=== PATIENT | female | born 1975 | race African-American/Black ===

== ENCOUNTER 2019-08-25 10:29 | Inpatient (IN) | payer SELFPAY ==
--- NOTE | 2019-08-25 14:35 | ULT ---
VENOUS DOPPLER ULTRASOUND OF THE RIGHT LOWER EXTREMITY: Date: 08/25/19 HISTORY: Right lower extremity pain. TECHNIQUE: Benson scale ultrasound with color flow and spectral Doppler imaging of the deep venous system of the r ight lower extremity was performed. FINDINGS: There is good flow, compression, and augmentation noted in the right common femoral, femoral, deep fe moral, popliteal, posterior tibial, and greater saphenous veins. IMPRESSION: No evidence of deep venous thrombosis in the right lower extremity. POS: TPC
[2019-08-25 14:40] LABS: #Eosinphils 0.1 thou/uL (0.0-0.7); #Lymphocytes 2.5 thou/uL (1.20-3.40); #Monocytes 0.6 thou/uL (0.11-0.59); #Neutrophils 3.3 thou/uL (1.40-6.50); %Basophils 0.7 % (0.0-1.0); %Eosinophils 1.1 % (0.0-10.0); %Lymphocytes 38.6 % (21.0-51.0); %Monocytes 8.9 % (0.0-10.0); %Neutrophils 50.8 % (42.0-75.0); Hemoglobin 10.5 g/dL (12.0-16.0); Mean Corpuscular Volume 74.2 fL (78.0-98.0); Mean Platelet Volume 9.5 fL (7.4-10.4); Platelet Count 341 thou/uL (130-400); RBC Distribution Width 17.4 % (11.5-14.5); Red Blood Cell (RBC) Count 4.58 mill/uL (4.20-5.40); White Blood Cell (WBC) Count 6.5 thou/uL (4.8-10.8)
[2019-08-25 15:01] LABS: Hypochromia SLIGHT = 6-15 cells (100X) (0-5/hpf); MDiff Complete? YES; Microcytosis SLIGHT = 6-15 cells (100X) (0-5/hpf); Ovalocytes SLIGHT = 2-5 cells (100X) (0-1/hpf); Platelet Morphology Comment Appears Adequate; Polychromasia SLIGHT = 2-3 cells (100X) (0-2/hpf); Target Cells SLIGHT = 2-5 cells (100X) (0-1/hpf); Tear Drops SLIGHT = 2-5 cells (100X) (0-1/hpf)
[2019-08-25 15:02] LABS: ALT (SGPT) 18 U/L (8-55); AST (SGOT) 59 U/L (5-34); Albumin 4.1 g/dL (3.5-5.0); Alkaline Phosphatase 59 U/L (40-110); Anion Gap 11 mmol/L (10-20); BUN (Urea Nitrogen) 9 mg/dL (7.0-18.7); Bilirubin, Total 0.3 mg/dL (0.2-1.2); Calc. Creatinine Clearance 0 mL/min (70-130); Calcium 9.1 mg/dL (7.8-10.44); Carbon Dioxide 23 mmol/L (22-29); Chloride 108 mmol/L (98-107); Estimated GFR-MDRD Greater than 90; Globulin 2.9 g/dL (2.4-3.5); Glucose 100 mg/dL (70-105); Potassium 4.4 mmol/L (3.5-5.1); Sodium 138 mmol/L (136-145)
[2019-08-25 15:29] LABS: CK (CPK) 9582 U/L (29-168)
[2019-08-25 16:34] LABS: Bilirubin Negative (Negative); Blood, Urine Trace (Negative); Clarity Turbid (Clear); Glucose, Urine (Dipstick) Normal (Negative); Leukocyte 250 Leu/uL (Negative); Nitrite Negative (Negative); Protein, Urine (Dipstick) Negative (Neg-Trace); RBC/HPF 0-3 HPF (0-3); Squamous Epithelial 21-50 HPF (0-3); Urobilinogen Normal mg/dL (Less than 2)
[2019-08-25 16:42] LABS: Bacteria/HPF 1+ HPF (None Seen)
[2019-08-25] MEDS ORDERED: Ondansetron PF 4 MG/2 ML Vial IVP PRN (18:29)
[2019-08-25] MEDS ORDERED: Ondansetron ODT 4 MG TAB PO PRN (18:29)
[2019-08-25] MEDS ORDERED: Acetaminophen 650 MG Suppository PR PRN (18:29)
--- NOTE | 2019-08-25 19:23 | HP ---
TIME OF ASSESSMENT: 1700 hours. CHIEF COMPLAINT: Right lower extremity pain and swelling. PRIMARY CARE PHYSICIAN: None. HISTORY OF PRESENT ILLNESS: Ms. Del Rosario is a 44-year-old woman with no comorbidities, who presents due to persistent swelling and pain involving the right calf. The patient states she had been experiencing occasional muscle cramps in her legs on Friday. On Friday, while she was sleeping, she recalls turning in bed and having a sudden severe cramp in the right calf, which she states became very firm and tight. She states that eventually she was able to rub the muscle out, but noticed a bulge in the calf that remained. The following day, her right calf remains swollen and very tender. She has had difficulty walking and difficulty bearing weight on her heel due to the pain. She states the pain is worse with plantar flexion and extension. She denies any numbness or tingling in her foot. Did not experience any trauma and did not partake in any strenuous activity prior to Friday. She has had occasional muscle cramping in the left thigh that has not caused any residual pain or swelling. She has overall felt well in herself in recent days and denies any complaints. REVIEW OF SYSTEMS: She denies any recent fevers, chills, or sweats. No headaches or dizziness. While sitting in the emergency department, she did start to feel lightheaded, but that has resolved. Denies any nausea or vomiting. No abdominal pain or cramping. Her appetite has been good. Denies any urinary symptoms. No bowel changes. All other review of systems are negative. PAST MEDICAL HISTORY: 1. Obesity. 2. Tobacco use. PAST SURGICAL HISTORY: x3. SOCIAL HISTORY: The patient reports smoking cigarettes up until two weeks ago. Denies any heavy alcohol use or illicit drug use. ALLERGIES: NO KNOWN DRUG ALLERGIES. CURRENT MEDICATIONS: None. PHYSICAL EXAMINATION: GENERAL: The patient appears well developed, well nourished, is in no acute distress. VITAL SIGNS: Temperature 98, pulse blood pressure 155/100, respirations 18, and O2 saturation 100% on room air. HEENT: Normocephalic and atraumatic. Pupils are equal, round, and reactive to light. Sclerae without icterus. Oropharynx is clear. NECK: Supple. No lymphadenopathy. LUNGS: Clear to auscultation bilaterally without wheezes, rales, or rhonchi. CARDIAC: Regular rate and rhythm without audible murmurs, rubs, or gallops. ABDOMEN: Soft, nontender, nondistended. Normoactive bowel sounds present. EXTREMITIES: Right lower leg notable for tense swelling without any warmth or erythema. No wounds. Tender to light palpation. Pedal pulses equal bilaterally and strong. Sensation intact. NEUROLOGIC: Alert and oriented x3. No neuro deficits. SKIN: Warm and dry. EMERGENCY DEPARTMENT COURSE: In the emergency department, the patient underwent laboratory studies which showed white count of 6.5, hemoglobin 10.5, hematocrit 34, platelets 341, neutrophils 50.8%. Sodium 138, potassium 4.4, chloride 108, carbon dioxide 23, anion gap 11, BUN 9, creatinine 0.75, GFR greater than 90. Total bilirubin 0.3, albumin 4.1, calcium 9.1, alkaline phosphatase 59, AST 59, ALT 18. Urinalysis done showed turbid appearance with 250 leukocytes, trace blood, 7 to 10 white blood cells, 21 to 50 squamous epithelial cells, and 1+ bacteria. She had a CK that was elevated at 9582. Venous Doppler was done of the right lower extremity showing no evidence of DVT. The patient was treated with 2 L of normal saline. IMPRESSION AND PLAN: Ms. Del Rosario is a very pleasant 44-year-old woman, who presents with right lower extremity pain and swelling since Friday. She is being admitted for management of the following. 1. Rhabdomyolysis. The patient has a CK of 9582. She has received 2 L of IV fluids in the emergency department. We will continue with IV hydration. Dr. Guzmán has assessed her leg given some concern for compartment syndrome. There is no trauma. No neurovascular compromise. The patient is very tender to light palpation and has tense swelling. May have slightly improved since Friday. We will obtain a CT of the lower extremity. We will continue with IV fluids. 2. Elevated blood pressure at 155/100. The patient without any known history of hypertension. She does not take any medications at home. This may be due to her pain. We will manage her pain and see if this improves her blood pressure. 3. Gastrointestinal prophylaxis with famotidine. 4. Deep venous thrombosis prophylaxis. Unable to use mechanical SCDs given the amount of swelling in the right lower extremity. The patient is able to ambulate despite the discomfort. Walking program consult placed. 5. Code status, full. Surrogate decision maker is her Hossein Morrissey. The patient's case was discussed with Dr. Guzmán, who agrees upon care as described above. Job ID: [id number]
[2019-08-25 20:17] VITALS: BMI 48.0
[2019-08-25] MEDS: Sodium Chloride 0.9% 1,000 ML IV SCH (20:24)
[2019-08-25] MEDS: Famotidine/PF 20 mg/2ml Vial SLOW IVP SCH (20:25)
[2019-08-25] MEDS ORDERED: HYDROcodone/Acetaminophen 5/325 mg Tablet PO PRN ×2 (20:35)
[2019-08-25] MEDS: hydrALAZINE 20 MG/ML VIAL SLOW IVP PRN (21:09)
[2019-08-26] MEDS: Sodium Chloride 0.9% 1,000 ML IV SCH ×5 (04:29→20:41)
[2019-08-26 06:21] LABS: #Basophils 0.1 thou/uL (0.0-0.2); #Eosinphils 0.1 thou/uL (0.0-0.7); #Monocytes 0.5 thou/uL (0.11-0.59); #Neutrophils 2.3 thou/uL (1.40-6.50); %Eosinophils 1.6 % (0.0-10.0); %Lymphocytes 49.7 % (21.0-51.0); %Monocytes 8.7 % (0.0-10.0); Hemoglobin 9.2 g/dL (12.0-16.0); Mean Corpuscular HGB CONC 31.2 g/dL (32.0-36.0); Mean Corpuscular Hemoglobin 23.2 pg (27.0-31.0); Mean Corpuscular Volume 74.4 fL (78.0-98.0); Mean Platelet Volume 10.3 fL (7.4-10.4); Platelet Count 297 thou/uL (130-400); RBC Distribution Width 17.2 % (11.5-14.5); Red Blood Cell (RBC) Count 3.95 mill/uL (4.20-5.40)
[2019-08-26 07:03] LABS: Calcium 7.9 mg/dL (7.8-10.44); Chloride 111 mmol/L (98-107); Potassium 3.9 mmol/L (3.5-5.1); Sodium 136 mmol/L (136-145)
[2019-08-26 07:05] LABS: Glucose 93 mg/dL (70-105)
[2019-08-26 07:06] LABS: Carbon Dioxide 21 mmol/L (22-29)
[2019-08-26 07:08] LABS: Calc. Creatinine Clearance 210 mL/min (70-130); Estimated GFR-MDRD Greater than 90
[2019-08-26 07:09] LABS: BUN (Urea Nitrogen) 7 mg/dL (7.0-18.7)
[2019-08-26 07:10] LABS: Anion Gap 8 mmol/L (10-20)
[2019-08-26 07:37] LABS: CK (CPK) 10169 U/L (29-168)
[2019-08-26] MEDS: Acetaminophen 325 MG TAB PO PRN (08:06)
[2019-08-26] MEDS: Famotidine/PF 20 mg/2ml Vial SLOW IVP SCH ×2 (08:06→20:40)
[2019-08-26] MEDS ORDERED: FLU VACC QS2019-20(6MOS UP)/PF 60 MCG/0.5 ML SYRINGE IM ONE (09:00)
--- NOTE | 2019-08-26 09:58 | MRI ---
MR the right foreleg without IV contrast INDICATION: Right leg pain without a known history of injury COMPARISON: None TECHNIQUE: Multiple multisequence MR images were obtained of the right foreleg without IV contrast. S urface per Marker was placed over the region of pain along the posterior medial aspect of the mid right foreleg. FINDINGS: There is diffuse edema seen within the musculature of the medial gastrocnemius without evid ence of a large intramuscular hematoma. There is mild surrounding edema seen as involving the superficial fascia overlying the gastrocnemius. There is mild subcutaneous edema within the mid to lo wer right foreleg. No additional abnormal muscular signal intensity is evident. No bone marrow signal abnormality is noted. There is mild osteoarthritic change involving visualized aspects of the right knee. IMPRESSION: 1. Grade 1 muscular strain of the medial gastrocnemius 2. Mild lymphedema of the mid to lower right foreleg
[2019-08-26] MEDS: hydrALAZINE 20 MG/ML VIAL SLOW IVP PRN (20:40)
[2019-08-26 22:23] LABS: Magnesium 1.6 mg/dL (1.6-2.6)
[2019-08-27] MEDS: Sodium Chloride 0.9% 1,000 ML IV SCH ×6 (02:33→20:29)
[2019-08-27 06:25] LABS: Reticulocyte Count 1.3 % (0.5-1.5)
--- NOTE | 2019-08-27 06:40 | PDOC.HOSPP ---
- Subjective Encounter Date: 08/26/19 Encounter Time: 10:30 Subjective: pt up in bed complains of pain to her right calf area - Objective Vital Signs & Weight: Vital Signs (12 hours) Temp Pulse Resp BP Pulse Ox 08/27/19 05:09 98.0 F 93 18 158/92 H 99 08/27/19 00:00 98.3 F 114 H 18 171/71 H 100 08/26/19 20:40 96 08/26/19 20:00 98.4 F 96 16 181/104 H 100 Weight Weight 280 lb Result Diagrams: 08/26/19 05:37 08/26/19 05:37 Hospitalist ROS - Review of Systems Respiratory: denies: cough, dry, shortness of breath, hemoptysis, SOB with excertion, pleuritic pain, sputum, wheezing, other Cardiovascular: denies: chest pain, palpitations, orthopnea, paroxysmal noc. dyspnea, edema, light headedness, other Musculoskeletal: reports: leg pain - Medication Medications: Active Medications Generic Name Dose Route Start Last Admin Trade Name Freq PRN Reason Stop Dose Admin Acetaminophen 650 mg 08/25/19 18:29 08/26/19 08:06 Tylenol PO 650 mg Q4H PRN Administration Headache/Fever/Mild Pain (1-3) Hydrocodone Bitart/Acetaminophen 2 tab 08/25/19 20:35 08/25/19 21:04 [place] 5/325 PO 2 tab Q4H PRN Administration Moderate Pain (4-6) Famotidine 20 mg 08/25/19 21:00 08/26/19 20:40 Pepcid SLOW IVP 20 mg Q12HR CANDE Administration Hydralazine HCl 5 mg 08/25/19 20:36 08/26/19 20:40 Apresoline SLOW IVP 5 mg Q4H PRN Administration SBP Greater Than 180 Sodium Chloride 1,000 mls @ 250 mls/hr 08/26/19 09:22 08/27/19 06:23 Normal Saline 0.9% IV Not Given .Q4H CANDE - Exam Neck: negative: supple, symmetric, no JVD, no thyromegaly, no lymphadenopathy, no carotid bruit, JVD Heart: negative: RRR, no murmur, no gallops, no rubs, normal peripheral pulses, irregular, diminshed peripheral pulses, murmur present, II/IV, III/IV Respiratory: negative: CTAB, no wheezes, no rales, no ronchi, normal chest expansion, no tachypnea, normal percussion, rales, rhonchi, tachypneic, wheezes Skin - other findings: swelling noted to right calf area, pedal pulse present Hosp A/P (1) Rhabdomyolysis Code(s): M62.82 - RHABDOMYOLYSIS Status: Acute (2) Hypertension Code(s): I10 - ESSENTIAL (PRIMARY) HYPERTENSION Status: Acute - Plan [Pt's mri indicated muscle strain. No clear etiology of her rhabdo. will increase her fluids and recheck her ck. ? myositis. will check aletha, aldolase, esr and crp. she denies any trauma.
[2019-08-27 06:54] LABS: Anion Gap 10 mmol/L (10-20); BUN (Urea Nitrogen) 9 mg/dL (7.0-18.7); Calc. Creatinine Clearance 204 mL/min (70-130); Carbon Dioxide 22 mmol/L (22-29); Chloride 111 mmol/L (98-107); Estimated GFR-MDRD Greater than 90; Glucose 101 mg/dL (70-105); Iron 17 ug/dL (50-170); Sodium 139 mmol/L (136-145)
[2019-08-27 07:20] LABS: CK (CPK) 9349 U/L (29-168)
[2019-08-27] MEDS ORDERED: Amlodipine 5 MG TAB PO SCH (09:00)
[2019-08-27] MEDS: Famotidine/PF 20 mg/2ml Vial SLOW IVP SCH ×2 (09:10→20:30)
[2019-08-27] MEDS: Acetaminophen 325 MG TAB PO PRN ×2 (09:18→20:28)
[2019-08-27] MEDS ORDERED: Iron Sucrose Complex 200 MG in Sodium Chloride 0.9% 250 ML 250 ML IVPB SCH (12:00)
[2019-08-27 15:46] LABS: ANA Symphony (Qualitative) Negative (Negative); ANA Symphony (Quantitative) 0.2 Ratio (< 0.7 Negative); dsDNA IgG Antibody Less than 0.5 IU/mL (<10 Negative)
[2019-08-28] MEDS: Sodium Chloride 0.9% 1,000 ML IV SCH ×7 (00:29→20:15)
[2019-08-28] MEDS: Amlodipine 5 MG TAB PO SCH (07:57)
[2019-08-28] MEDS: Famotidine/PF 20 mg/2ml Vial SLOW IVP SCH ×2 (08:00→20:14)
[2019-08-28] MEDS ORDERED: Iron, Sodium Ferric Gluconate 250 MG in Sodium Chloride 0.9% 250 ML 250 ML IVPB SCH (08:00)
[2019-08-28] MEDS: Acetaminophen 325 MG TAB PO PRN ×2 (08:38→20:24)
[2019-08-28 09:51] LABS: Anion Gap 13 mmol/L (10-20); BUN (Urea Nitrogen) 6 mg/dL (7.0-18.7); Calc. Creatinine Clearance 220 mL/min (70-130); Carbon Dioxide 19 mmol/L (22-29); Chloride 110 mmol/L (98-107); Estimated GFR-MDRD Greater than 90; Glucose 89 mg/dL (70-105); Sodium 138 mmol/L (136-145)
[2019-08-28 10:17] LABS: CK (CPK) 8090 U/L (29-168)
--- NOTE | 2019-08-28 13:17 | PDOC.HOSPP ---
- Subjective Encounter Date: 08/28/19 Encounter Time: 10:30 Subjective: pt up in bed feels well - Objective Vital Signs & Weight: Vital Signs (12 hours) Temp Pulse Resp BP BP Pulse Ox 08/28/19 11:45 98.8 F 95 16 144/79 H 96 08/28/19 08:00 172/86 H 95 08/28/19 07:57 98.1 F 84 16 95 Weight Weight 280 lb I&O: 08/27/19 08/28/19 08/29/19 06:59 06:59 06:59 Intake Total 4094 Balance 4094 Result Diagrams: 08/26/19 05:37 08/28/19 08:42 Hospitalist ROS - Review of Systems Respiratory: denies: cough, dry, shortness of breath, hemoptysis, SOB with excertion, pleuritic pain, sputum, wheezing, other Cardiovascular: denies: chest pain, palpitations, orthopnea, paroxysmal noc. dyspnea, edema, light headedness, other Gastrointestinal: denies: nausea, vomiting, abdominal pain, diarrhea, constipation, melena, hematochezia, other - Medication Medications: Active Medications Generic Name Dose Route Start Last Admin Trade Name Freq PRN Reason Stop Dose Admin Acetaminophen 650 mg 08/25/19 18:29 08/28/19 08:38 Tylenol PO 650 mg Q4H PRN Administration Headache/Fever/Mild Pain (1-3) Hydrocodone Bitart/Acetaminophen 2 tab 08/25/19 20:35 08/25/19 21:04 [place] 5/325 PO 2 tab Q4H PRN Administration Moderate Pain (4-6) Amlodipine Besylate 10 mg 08/28/19 09:00 08/28/19 07:57 Norvasc PO 10 mg DAILY CANDE Administration Famotidine 20 mg 08/25/19 21:00 08/28/19 08:00 Pepcid SLOW IVP 20 mg Q12HR CANDE Administration Hydralazine HCl 5 mg 08/25/19 20:36 08/26/19 20:40 Apresoline SLOW IVP 5 mg Q4H PRN Administration SBP Greater Than 180 Sodium Chloride 1,000 mls @ 250 mls/hr 08/26/19 09:22 08/28/19 12:06 Normal Saline 0.9% IV Not Given .Q4H CANDE - Exam Neck: negative: supple, symmetric, no JVD, no thyromegaly, no lymphadenopathy, no carotid bruit, JVD Heart: negative: RRR, no murmur, no gallops, no rubs, normal peripheral pulses, irregular, diminshed peripheral pulses, murmur present, II/IV, III/IV Respiratory: negative: CTAB, no wheezes, no rales, no ronchi, normal chest expansion, no tachypnea, normal percussion, rales, rhonchi, tachypneic, wheezes Hosp A/P (1) Rhabdomyolysis Code(s): M62.82 - RHABDOMYOLYSIS Status: Acute (2) Hypertension Code(s): I10 - ESSENTIAL (PRIMARY) HYPERTENSION Status: Acute - Plan [Pt's mri indicated muscle strain. No clear etiology of her rhabdo. will increase her fluids and recheck her ck. ? myositis. will check aletha, aldolase, esr and crp. she denies any trauma. 08/28 pt up in bed no complains, she has no pcp. Her ck has improved. will watch for one more day. will also put her on bp meds. Her bp has been high. will put him on low salt diet.
--- NOTE | 2019-08-28 13:19 | PDOC.HOSPP ---
- Subjective Encounter Date: 08/27/19 Encounter Time: 11:13 Subjective: pt up in bed complains of pain to her right leg. - Objective Vital Signs & Weight: Vital Signs (12 hours) Temp Pulse Resp BP BP Pulse Ox 08/28/19 11:45 98.8 F 95 16 144/79 H 96 08/28/19 08:00 172/86 H 95 08/28/19 07:57 98.1 F 84 16 95 Weight Weight 280 lb I&O: 08/27/19 08/28/19 08/29/19 06:59 06:59 06:59 Intake Total 4094 Balance 4094 Result Diagrams: 08/26/19 05:37 08/28/19 08:42 Hospitalist ROS - Review of Systems Respiratory: denies: cough, dry, shortness of breath, hemoptysis, SOB with excertion, pleuritic pain, sputum, wheezing, other Cardiovascular: denies: chest pain, palpitations, orthopnea, paroxysmal noc. dyspnea, edema, light headedness, other - Medication Medications: Active Medications Generic Name Dose Route Start Last Admin Trade Name Freq PRN Reason Stop Dose Admin Acetaminophen 650 mg 08/25/19 18:29 08/28/19 08:38 Tylenol PO 650 mg Q4H PRN Administration Headache/Fever/Mild Pain (1-3) Hydrocodone Bitart/Acetaminophen 2 tab 08/25/19 20:35 08/25/19 21:04 [place] 5/325 PO 2 tab Q4H PRN Administration Moderate Pain (4-6) Amlodipine Besylate 10 mg 08/28/19 09:00 08/28/19 07:57 Norvasc PO 10 mg DAILY CANDE Administration Famotidine 20 mg 08/25/19 21:00 08/28/19 08:00 Pepcid SLOW IVP 20 mg Q12HR CANDE Administration Hydralazine HCl 5 mg 08/25/19 20:36 08/26/19 20:40 Apresoline SLOW IVP 5 mg Q4H PRN Administration SBP Greater Than 180 Sodium Chloride 1,000 mls @ 250 mls/hr 08/26/19 09:22 08/28/19 12:06 Normal Saline 0.9% IV Not Given .Q4H CANDE - Exam ENT: negative: normocephalic atraumatic, no oropharyngeal lesions, moist mucosa , dry oral mucosa Neck: negative: supple, symmetric, no JVD, no thyromegaly, no lymphadenopathy, no carotid bruit, JVD Heart: negative: RRR, no murmur, no gallops, no rubs, normal peripheral pulses, irregular, diminshed peripheral pulses, murmur present, II/IV, III/IV Hosp A/P (1) Rhabdomyolysis Code(s): M62.82 - RHABDOMYOLYSIS Status: Acute (2) Hypertension Code(s): I10 - ESSENTIAL (PRIMARY) HYPERTENSION Status: Acute - Plan [Pt's mri indicated muscle strain. No clear etiology of her rhabdo. will increase her fluids and recheck her ck. ? myositis. will check aletha, aldolase, esr and crp. she denies any trauma. 08/27 will increase her norvasc to 10mg. Her ck is trending down. will continue fluids for now. 08/28 pt up in bed no complains, she has no pcp. Her ck has improved. will watch for one more day. will also put her on bp meds. Her bp has been high. will put him on low salt diet.
[2019-08-28] MEDS: hydrALAZINE 20 MG/ML VIAL SLOW IVP PRN (20:14)
[2019-08-29] MEDS: Acetaminophen 325 MG TAB PO PRN ×2 (01:04→08:32)
[2019-08-29 07:16] VITALS: TEMP 98
[2019-08-29 07:42] LABS: Anion Gap 13 mmol/L (10-20); BUN (Urea Nitrogen) 7 mg/dL (7.0-18.7); Calc. Creatinine Clearance 210 mL/min (70-130); Calcium 8.7 mg/dL (7.8-10.44); Carbon Dioxide 21 mmol/L (22-29); Chloride 109 mmol/L (98-107); Estimated GFR-MDRD Greater than 90; Glucose 92 mg/dL (70-105); Sodium 139 mmol/L (136-145)
[2019-08-29 07:56] LABS: CK (CPK) 5312 U/L (29-168)
[2019-08-29] MEDS: Amlodipine 5 MG TAB PO SCH (08:24)
[2019-08-29] MEDS: Famotidine/PF 20 mg/2ml Vial SLOW IVP SCH (08:25)
[2019-08-29] MEDS: Sodium Chloride 0.9% 1,000 ML IV SCH (08:32)
[2019-08-29 14:30] VITALS: BP 186/114
[2019-08-29] MEDS ORDERED: hydrALAZINE 25 MG TAB PO SCH (14:30)
--- NOTE | 2019-08-29 20:09 | DIS ---
DATE OF ADMISSION: 08/25/2019 DATE OF DISCHARGE: 08/29/2019 DISCHARGE DIAGNOSES: 1. Rhabdomyolysis. 2. Right gastrocnemius swelling. 3. Hypertension, new diagnosis. 4. Obesity. 5. Iron deficiency anemia. HOSPITAL COURSE: The patient is a 44-year-old female who initially presented to the hospital with complaints of significant pain to her right calf area. At this time, she was found to have an elevated CK of 9000, which went up to 12,000. She was started with IV hydration and given a significant isolation just to her right gastrocnemius muscle, she did have a MRI and lower extremity Dopplers. The MRI indicating grade 1 muscle strain of the medial gastrocnemius, mild lymphedema to the mid and the lower right foreleg was noted. The patient also had vascular ultrasound Dopplers, which were negative for any DVT. The patient continued to improve after hydration. Her CK level on discharge was 5000. In the hospital, she was noted to have elevated blood pressure, pretty significant at this time, she was started on Norvasc and beta ophelia. The patient currently does not have a PCP, I have encouraged her to get a PCP and I have recommended either [facility] versus [facility]. DISCHARGE MEDICATIONS: Will be metoprolol 25 mg b.i.d. and amlodipine 10 mg daily. PHYSICAL EXAMINATION: VITAL SIGNS: On discharge were temp 98.0, pulse 100, respirations 20, 97% on room air, blood pressure 162/79. GENERAL: She is awake, alert, and oriented x3. Does not appear in any distress. CV: S1 and S2 present. No murmurs, rubs, or gallops. I have asked the patient to eat a low-salt diet and have some weight loss given her elevated blood pressure. The etiology of her rhabdomyolysis unclear. I did do some immunology, which is LINDA which was negative. Her CK as I mentioned was 5312. Her CRP was normal and her ESR was normal. The patient was given 2-3 doses of IV iron. I have asked her to take oral iron pills with some stool softeners. Job ID: [id number]
[2019-08-29] MEDS ORDERED: Metoprolol Tartrate 25 MG TAB PO SCH (21:00)
== END 2019-08-29 15:28 | disposition home or self-care (01) | DRG 558 ==
LOC: ERS 10:29 → T4-A 20:07
PROVIDERS: ADMIT Family Medicine; ATTEND Family Medicine
DX: M62.82 Rhabdomyolysis (principal); Z68.42 Body mass index [BMI] 45.0-49.9, adult; I10 Essential (primary) hypertension; D50.9 Iron deficiency anemia, unspecified; E66.9 Obesity, unspecified; I89.0 Lymphedema, not elsewhere classified; F17.210 Nicotine dependence, cigarettes, uncomplicated
CPT/HCPCS: 36415; 80048; 80053; 81003; 81015; 82085; 82550; 82728; 83540; 83735; 85025; 85046; 85652; 86038; 86140; 86225; 87086; 96360; J0360; J1756; J2916; J7050; S0028